=== PATIENT | male | born 1990 | race Caucasian/White ===

== ENCOUNTER 2020-01-21 18:20 | Emergency (ER) | payer MEDICAID, SELFPAY ==
[2020-01-21 18:27] VITALS: BP 134/88; BP 165/82; PULSE 101; PULSE 117; RESP 20; TEMP 36.4; O2SAT 100; O2SAT 97; BMI 25.7
--- NOTE | 2020-01-21 18:43 | ED_ITS ---
HPI - Overdose General Chief Complaint: Overdose Stated Complaint: OVERDOSE Time Seen by Provider: 01/21/20 18:43 Source: patient Mode of arrival: EMS History of Present Illness HPI Narrative: patient is brought to emergency room by EMS after an overdose. per EMS, patient received 4 mg of nasal Narcan, Patient had good Results. Since then patient has been alert and oriented x3, patient arrived to the emergency room awake, alert, currently ambulatory and asymptomatic. Patient denies suicidal ideation. Patient states he had an accidental relapse, states he used 1 bag of heroin. MD complaint: accidental overdose Onset (ago): minute(s) Timing confirmed by: other ( Bystanders) Intent: other ( accidental) Context: Intentional Overdose: other ( relapse) Context: Accidental Overdose: wanted to get high Treatments Prior to Arrival: narcan Related Data Allergies Allergy/AdvReac Type Severity Reaction Status Date / Time No Known Allergies Allergy Verified 01/21/20 18:27 [No Known Allergies*] Review of Systems Review of Systems: Constitutional: No Weight loss, No Fever, No Chills, No Night Sweats, No Fatigue, No Malaise ENT/Mouth: No Hearing loss, No Ear Pain, No Nasal Congestion, No Sinus Pain, No Hoarseness, No sore throat, No Rhinorrhea, No Swallowing Difficulty Eyes: No Eye Pain, No Swelling, No Redness, No Foreign Body, No Discharge, No Vision Changes Cardiovascular: No Chest Pain, No SOB, No Dyspnea on Exertion, No Orthopnea, No Edema, No Palpitations Respiratory: No Cough, No Sputum, No Wheezing, No Smoke Exposure, No Dyspnea Gastrointestinal: No Nausea, No Vomiting, No Diarrhea, No Constipation, No abdominal Pain, No Hematochezia, No Melena Genitourinary: no irregular bleeding, No Dysuria, No Urinary Frequency, No Hematuria, No Urinary Incontinence, No Urgency, No Flank Pain, No Urinary Flow Changes, No Hesitancy Musculoskeletal: No joint pain, No Myalgias, No Joint Swelling Skin: No Skin Lesions, No rash Neuro: No Weakness, No Numbness, No Paresthesias, No Loss of Consciousness, No Dizziness, No Headache Psych: No Anxiety/Panic, No Depression, No SI/HI/AH/VH, No Social Issues, Heme/Lymph: No Bruising, No Bleeding,No Lymphadenopathy Endocrine: No Polyuria, No Polydipsia, No Temperature Intolerance PMF Past Medical History Medical History Hepatitis C Substance abuse Surgical History (Updated 01/21/20 @ 18:34 by Lili Fatima) History of cholecystectomy Social History Social History (Updated 01/21/20 @ 18:46 by Noris Curtis MD) Use of substances other than those prescribed or required for medical reasons: Yes Substance Use Type: Heroin and Opiates Advance Directives: No Advance Directives Information Provided: Yes Physical Exam Vital Signs and I&O and Narrative: Vital Signs and I&O: Vital Signs Temp 97.6 F 01/21/20 18:27 Pulse 101 H 01/21/20 18:27 Resp 20 01/21/20 18:27 BP 134/88 01/21/20 18:27 Pulse Ox 97 01/21/20 18:27 Intake & Output 01/20/20 01/21/20 01/21/20 18:59 06:59 18:59 Weight 95.708 kg Body Mass Index 25.7 Appearance: Alert. Oriented X3. No acute distress. Eyes: Pupils equal, round and reactive to light. ENT: Pharynx normal. Neck: Normal inspection. Neck supple. No lymph nodes noted. No crepitus CVS: Normal heart rate and rhythm. Pulses normal. Normal S1 and S2 Respiratory: No respiratory distress. Breath sounds normal. No Wheezing. No rales Abdomen: Soft and nontender. No rigidity. No distention. good BS x4 Skin: Skin warm and dry. Normal skin color. Normal skin turgor. Extremities: No lower extremity edema. No lower extremity edema. No Lacerations. No Rash Neuro: Oriented X 3. No motor deficit. No sensory deficit. Moving all extermities. No slurred speech. Course Reevaluation(s) Reevaluation #1: patient remains alert and oriented x3. Patient states that he is not willing to stay for observation. Patient states he has been Narcan several times before, he never has respiratory depression after Narcan. Patient starting to walk out the door does not want to stay. As mentioned above, patient is alert and oriented x3, ambulatory, steady gait, vitals within normal limits. Patient declined rehabilitation, declines being to wellness health coach. Time: 18:46 MDM - Overdose Differential Diagnosis Differential diagnosis: Likely drug overdose and accidental drug ingestion Discharge Plan Discharge Clinical Impression: Substance abuse, Drug overdose Patient Disposition: Left Against Medical Advice Additional Instructions: Please stop using drugs. If you have any worsening symptoms, any new symptoms, please return to the emergency room or call 911
--- NOTE | 2020-01-21 19:31 | PC.NURSE ---
Evaluated by Dr. Curtis. Pt refusing to stay. Dr Curtis wants patient to stay for at least one hours. Pt unwilling. Denies si/hi. Reports I have things to do, I have an appointment . Pt ambulatory, speaking in full sentences. Dr. Curtis discussed risks up to and including . Pt refusing to stay.
== END 2020-01-21 19:00 | disposition left against medical advice (07) ==
PROVIDERS: Emergency Provider Emergency Medicine
DX: T40.1X1A Poisoning by heroin, accidental (unintentional), initial encounter (principal); Y92.9 Unspecified place or not applicable; F11.10 Opioid abuse, uncomplicated; Z71.51 Drug abuse counseling and surveillance of drug abuser
CPT/HCPCS: 99282; 99284